=== PATIENT | female | born 1980 | race African-American/Black ===

== ENCOUNTER 2020-09-07 17:15 | Emergency (ER) | payer OTHER ==
[~2020-09-07] VITALS: Ht 188 cm; Wt 122.5 kg
[2020-09-07] MEDS ORDERED: PLAVIX 75 MG TA75 MG PO (19:19)
[2020-09-07] MEDS ORDERED: PROMETH-CODEIN 65 ML PO (19:30)
[2020-09-07] MEDS ORDERED: ONDANSETRON HCL4 M2 PO (19:30)
[2020-09-07 19:42] VITALS: BP 121/87
== END 2020-09-07 19:43 | disposition home or self-care (01) ==
LOC: ER 17:15
DX: R06.02 Shortness of breath (principal); Z20.828 Contact with and (suspected) exposure to other viral communicable diseases; R05 Cough; F17.210 Nicotine dependence, cigarettes, uncomplicated; Z88.6 Allergy status to analgesic agent; Z88.0 Allergy status to penicillin; Z79.899 Other long term (current) drug therapy